=== PATIENT | male | born 1995 | race Caucasian/White ===

== ENCOUNTER 2017-04-03 22:44 | Emergency (ER) | payer BC ==
[2017-04-03] MEDS ORDERED: OLANZapine 10 MG/2 ML VIAL IM ONE (22:49)
--- NOTE | 2017-04-03 23:56 | EDPHY ---
H & P Stated Complaint: CI Time Seen by Provider: 04/03/17 22:48 HPI/ROS: Chief Complaint: Altered mental status, LSD use HPI: 21-year-old male who was at the [employer] concert this evening and was using LSD and cocaine. The patient became altered and aggressive. EMS was called. Patient came in 4 point restraints. He is feeling calmer now. Admits to using LSD and cocaine. Denies any chest pain or shortness of breath. No nausea or vomiting. No fevers or chills. Patient is mildly altered at this time but is able to provide me with medical history ROS: 10 point Review of Systems is negative except as noted in the HPI. PMH: None Medications: None Allergies: No known drug allergies Social History: Positive smoking, positive alcohol, LSD and cocaine Family History: non-contributory Physical Exam: Gen: Awake, Alert, No Distress, mildly altered but answering questions HEENT: Nose: no rhinorrhea Eyes: PERRLA, EOMI Mouth: Moist mucosa Neck: Supple, no JVD Chest: nontender, lungs clear to auscultation Heart: S1, S2 normal, no murmur Abd: Soft, non-tender, no guarding Back: no CVA tenderness, no midline tenderness Ext: no edema, non-tender Skin: no rash Neuro: CN II-XII intact, Sensation grossly intact, Strength 5/5 in bilateral upper and lower extremities - Personal History Current Tetanus/Diphtheria Vaccine: Unsure Current Tetanus Diphtheria and Acellular Pertussis (TDAP): Unsure - Medical/Surgical History Hx Asthma: No Hx Chronic Respiratory Disease: No Hx Diabetes: No Hx Cardiac Disease: No Hx Renal Disease: No Hx Cirrhosis: No Hx Alcoholism: No Hx HIV/AIDS: No Hx Splenectomy or Spleen Trauma: No Other PMH: none - Social History Smoking Status: Current some day smoker Constitutional: Initial Vital Signs Temperature (C) 37.1 C 04/03/17 23:03 Heart Rate 132 H 04/03/17 23:03 Respiratory Rate 20 04/03/17 23:03 Blood Pressure 170/88 H 04/03/17 23:03 O2 Sat (%) 93 04/03/17 23:03 O2 Delivery Mode Room Air Allergies/Adverse Reactions: No Known Allergies Allergy (Verified 04/03/17 23:03) Home Medications: Medication Instructions Recorded NK [No Known Home Meds] 04/03/17 Medical Decision Making ED Course/Re-evaluation: Patient is now awake and appropriate. Ambulating unassisted to the bathroom. No current complaints. Medically cleared for discharge. - Data Points Medications Given: Discontinued Medications Olanzapine (Zyprexa Im Injection) 10 mg IM EDNOW ONE Stop: 04/03/17 22:50 Last Admin: 04/03/17 23:01 Dose: 10 mg Departure - Departure Disposition: Home, Routine, Self-Care Clinical Impression: Polysubstance abuse Condition: Good Instructions: Polysubstance Abuse (ED) Additional Instructions: Follow up with primary care physician for any concerns. Return to the emergency depart for increasing chest pain, shortness of breath, fevers, chills, cough, or any other concerns. Referrals: Patient,NotPresent [Primary Care Provider] - As per Instructions
[2017-04-04 00:07] VITALS: BP 143/100; PULSE 91; RESP 16; TEMP 97.9; O2SAT 98
== END 2017-04-04 00:07 | disposition home or self-care (01) ==
DX: F19.10 Other psychoactive substance abuse, uncomplicated (principal); F17.200 Nicotine dependence, unspecified, uncomplicated